=== PATIENT | female | born 1990 | race African-American/Black ===

== ENCOUNTER 2020-01-17 07:32 | Outpatient (CLI) | payer BC, SELFPAY ==
[2020-01-17 09:08] LABS: Glucose 1 Hour PP 50gm Dose 119 mg/dL
[2020-01-17 09:14] LABS: Hematocrit 30.5 % (37.0-47.0); Hemoglobin 10.4 g/dL (12.0-15.0)
[2020-01-17 09:49] LABS: HIV 1/2 Ab P24 Ag Result Negative (Negative)
== END 2020-01-17 07:33 | disposition home or self-care (01) ==
PROVIDERS: Visit Provider Obstetrics & Gynecology
DX: Z34.81 Encounter for supervision of other normal pregnancy, first trimester (principal)
CPT/HCPCS: 36415; 82947; 85014; 85018; 86703; G0432

== ENCOUNTER 2020-02-26 06:20 | Inpatient (IN) | payer BC, SELFPAY ==
[2020-02-26] VITALS (45 sets, daily range): BP systolic 107–155; BP diastolic 63–127; PULSE 71–112; RESP 16; TEMP 36.6–37; O2SAT 99–100; BMI 33.0
[2020-02-26 07:03] LABS: Basophils Percent Auto 0.1 % (0.2-1.2); Eosinophils Absolute Auto 0.1 K/mm3 (0-0.3); Eosinophils Percent Auto 1.2 % (0-4.4); Hematocrit 31.6 % (37.0-47.0); Hemoglobin 10.9 g/dL (12.0-15.0); Immature Granulocyte Percent A 0.9 % (0-0.5); Lymphocytes Absolute Auto 2.51 K/mm3 (0.9-3.2); Lymphocytes Percent Auto 23.6 % (18.3-44.2); Mean Corpuscular HGB Conc 34.5 g/dl (32-36); Mean Corpuscular Hemoglobin 27.8 pg (26-34); Mean Corpuscular Volume 80.6 fl (80-100); Mean Platelet Volume 11.7 fl (7.4-10.4); Monocytes Percent Auto 9.6 % (2.6-8.5); Neutrophils Absolute Auto 6.9 K/mm3 (1.3-6.7); Neutrophils Percent Auto 64.6 % (45.5-73.1); Platelet Count Result 185 k/mm3 (150-375); Red Blood Count 3.92 M/mm3 (4.2-5.4); Red Cell Distribution Width 13.3 % (11.5-14.5); White Blood Count 10.7 K/mm3 (4.5-10.0)
[2020-02-26] MEDS: LACTATED RINGERS 1,000 ML 125 ML IV CONT ×3 (07:12→14:07)
[2020-02-26] MEDS: OXYTOCIN 30 UNITS/NS 500 ML 30 UNITS/500 ML BAG IV CONT (07:13)
--- NOTE | 2020-02-26 07:17 | LDADM ---
This patient, Gabriele Rg, was admitted to Labor/Delivery/Recovery 107 on 02/26/20 at 06:20. Plans for labor, pain management and were discussed with patient. Patient/family oriented to hospital policies and general routines including ID bracelet, bed and alarms, visiting hours, pain management, procedures, bathroom and other care routines, personal items, smoking policy, room service/diet and guest tray routines, infant security routines, and visiting hours. Patient/Family are encouraged to report perceived risks to care and to ask questions if they do not understand what they are told or what they should do. See OBIX for further documentation.
[2020-02-26 10:37] LABS: Rapid Plasma Reagin Non-Reactive (NonReactive)
--- NOTE | 2020-02-26 10:58 | WPDANESEPPF ---
Anes - Initial Pre Proc Eval Procedure: Labor Epidural Date/Time: 02/26/20 10:58 Surgeon: Aj Bailey MD Pre Op Diagnosis: ind Patient Data Age: 29 Gender: F Height: 1.75 m Weight: 101.5 kg Last Vital Signs Pulse 80 02/26/20 10:01 BP 121/71 02/26/20 10:01 Allergies Allergy/AdvReac Type Severity Reaction Status Date / Time No Known Allergies Allergy Unverified 05/21/19 14:12 Home Medications Medication Instructions Recorded Confirmed Type PNV cmb#95-ferrous fumarate-FA 1 tablet PO DAILY 01/31/20 02/26/20 History [] ferrous sulfate 325 mg PO DAILY 01/31/20 02/26/20 History Laboratory Tests 02/26/20 02/26/20 02/26/20 06:50 06:50 06:50 WBC 10.7 K/mm3 H K/mm3 (4.5-10.0) RBC 3.92 M/mm3 L M/mm3 (4.2-5.4) Hgb 10.9 g/dL L g/dL (12.0-15.0) Hct 31.6 % L % (37.0-47.0) MCV 80.6 fl fl (80-100) MCH 27.8 pg pg (26-34) MCHC 34.5 g/dl g/dl (32-36) RDW 13.3 % % (11.5-14.5) Plt Count 185 k/mm3 k/mm3 (150-375) MPV 11.7 fl H fl (7.4-10.4) Immature Gran % (Auto) 0.9 % H % (0-0.5) Neut % (Auto) 64.6 % % (45.5-73.1) Lymph % (Auto) 23.6 % % (18.3-44.2) [place] % (Auto) 9.6 % H % (2.6-8.5) Eos % (Auto) 1.2 % % (0-4.4) Baso % (Auto) 0.1 % L % (0.2-1.2) Lymph # (Auto) 2.51 K/mm3 K/mm3 (0.9-3.2) [place] # (Auto) 1.0 K/mm3 H K/mm3 (0.1-0.6) Eos # (Auto) 0.1 K/mm3 K/mm3 (0-0.3) Baso # (Auto) 0.0 K/mm3 K/mm3 (0.0-0.1) Abs Immat Gran (auto) 0.10 K/mm3 H K/mm3 (0.00-0.031) Absolute Neuts (auto) 6.9 K/mm3 H K/mm3 (1.3-6.7) Absolute Nucleated RBC 0.0 K/mm3 K/mm3 (0.0-0.012) Nucleated RBC % 0.0 % % (0.0-0.2) RPR Non-reactive (NonReactive) Blood Type A Positive Antibody Screen Negative Patient hx anesthesia problems: none Family hx anesthesia problems: none [facility] Family History Family History Other No pertinent family history Social History Social History Smoking status: Never smoker Substance use: never Gender identity (if verbalized by the patient): Female Spiritual care concerns: No Anes - Eval Final PreProcedure Day of Procedure 02/26/20 10:58 Patient weight: obese Heart: regular rate and rhythm Lungs: clear to auscultation Airway: Mallampati scale class II Neurological: alert and oriented ASA classification: II Emergent: no Anesthetic plan: proceed Anesthesia type and monitoring: regional epidural Informed Consent: The patient's anesthetic plan and its attendant risks and benefits were discussed with the patient/family/POA. Questions were solicited and answers provided to the satisfaction of the patient/family/POA.
--- NOTE | 2020-02-26 18:15 | PM.OBPRVD ---
OB - Delivery Note Procedure Route of delivery: Laceration description: Perineal - 2nd Degree Delivery repair: chromic Specimen: No Estimated blood loss (mL): 350 Anesthesia type: Epidural Disposition: floor Narrative: Patient prepped and draped in usual manner for this procedure. Maternal expulsive efforts readily delivered vertex which was section naso-oropharynx and the rest of baby was delivered. Cord clamped cut placenta delivered spontaneously. Uterus initially was boggy but with massage and Pitocin became firm and hemostatic second-degree laceration was noted approximated in 2 0 chromic to approximate the vaginal tissue deep tissue subcuticular layer. This procedure was considered terminated immediate postop condition mother baby were both excellent. Baby Weeks of gestation at delivery: 39 Infant gender: Male Weight (pounds): 7 Weight (ounces): 8 score one minute: 8 score five minutes: 9
[2020-02-26] MEDS: OXYTOCIN 30 UNITS/NS 500 ML 30 UNITS/500 ML BAG 125 UNITS IV CONT (18:27)
[2020-02-26] MEDS: WITCH HAZEL 40 PADS 1 PAD TOPICAL (20:03)
[2020-02-26] MEDS: BENZOCAINE 20% AER SPR (*SP) 56 GM CAN 1 SPRAY TOPICAL (20:04)
[2020-02-26] MEDS: IBUPROFEN 600 MG TABLET PO (21:25)
[2020-02-27] MEDS: IBUPROFEN 600 MG TABLET PO ×2 (04:33→14:35)
[2020-02-27 04:49] LABS: Hematocrit 29.9 % (37.0-47.0)
[2020-02-27] MEDS: DOCUSATE SODIUM 100 MG CAPSULE PO (07:53)
[2020-02-27] MEDS: ACETAMINOPHEN 325 MG TABLET 650 MG PO (07:53)
[2020-02-27 09:58] VITALS: BP 113/66; PULSE 84; RESP 14; TEMP 36.4; O2SAT 100
--- NOTE | 2020-02-27 12:27 | PM.OBDSVD ---
OB - DS: Summary OB Procedures : None OB Procedures Intrapartum: Spontaneous Vag Delivery OB Procedures: : None Time Spent with Patient Time attestation: Total time spent providing and/or coordinating discharge services: DS: Data Data Completed and Pending Labs on day of discharge: Labs from last 24 hours 02/27/20 04:40 Hgb 10.0 L Hct 29.9 L Discharge Plan Discharge Discharging Clinician: Aj Bailey Patient Disposition: Home, Self-Care Activity: as tolerated Diet: as tolerated Patient Instructions: Antibiotic Form Stand Alone Forms: General Discharge Information Follow-up/Referrals: Aj Bailey MD [Physician] - 3 Weeks Discharge Medications: New ibuprofen 600 mg Tablet 600 mg PO Q6H PRN (Reason: Cramping) Qty: 30 RF: 0 Continued ferrous sulfate 325 mg (65 mg iron) Tablet 325 mg PO DAILY RF: 0 PNV cmb#95-ferrous fumarate-FA [] 28 mg iron- 800 mcg Tablet 1 tablet PO DAILY RF: 0 Date of admission: 02/26/20 06:20 Primary Care Provider: PHYSICIAN,[employer]ATION HELPER Admitting Provider: Aj Bailey Attending physician on admission: Aj Bailey
[2020-02-29 11:22] VITALS: BP 120/66; PULSE 80; RESP 20
== END 2020-02-27 19:00 | disposition home or self-care (01) | DRG 807 ==
LOC: ANHLDR 06:25 → ANHOB2 20:47
PROVIDERS: Obstetrics & Gynecology; Admitting Provider Obstetrics & Gynecology; Visit Provider Obstetrics & Gynecology
DX: O99.214 Obesity complicating childbirth (principal); Z37.0 Single live birth; Z3A.39 39 weeks gestation of pregnancy; E66.9 Obesity, unspecified; O70.1 Second degree perineal laceration during delivery
CPT/HCPCS: 36415; 85014; 85018; 85025; 86592; 86850; 86900; 86901; A9270; J2590; J2795; J7120

== ENCOUNTER 2020-10-22 09:07 | Outpatient (CLI) | payer OTHER, SELFPAY | END 2020-10-22 09:08 | disposition home or self-care (01) | PROVIDERS: Visit Provider Obstetrics & Gynecology | DX: N39.0 Urinary tract infection, site not specified (principal) | CPT/HCPCS: 87077; 87086; 87088; 87186 ==

== ENCOUNTER 2021-04-09 10:12 | Outpatient (CLI) | payer SELFPAY ==
[2021-04-09 11:51] LABS: Hematocrit 30.4 % (37.0-47.0); Hemoglobin 10.3 g/dL (12.0-15.0)
[2021-04-09 12:01] LABS: Glucose 1 Hour PP 50gm Dose 106 mg/dL
[2021-04-09 12:39] LABS: HIV 1/2 Ab P24 Ag Result Negative (Negative)
== END 2021-04-09 10:13 | disposition home or self-care (01) ==
LOC: ANHLAB 10:15
PROVIDERS: Visit Provider Obstetrics & Gynecology
DX: Z34.92 Encounter for supervision of normal pregnancy, unspecified, second trimester (principal); Z3A.00 Weeks of gestation of pregnancy not specified
CPT/HCPCS: 36415; 82947; 85014; 85018; 86703; G0432

== ENCOUNTER 2021-06-17 06:06 | Inpatient (IN) | payer OTHER, SELFPAY ==
[2021-06-17] VITALS (62 sets, daily range): BP systolic 106–157; BP diastolic 59–96; PULSE 64–123; RESP 18; TEMP 36–37.2; O2SAT 95–100; BMI 38.7
--- OUTSIDE RECORDS SUMMARY | 2021-06-17 06:12 | XMS_ITS | Encounter Summary ---
:1990 Author Reason for Visit return OB visit Assessment and Plan 1. Routine care Discussion Note: None recorded.Patient educational handouts: No information available. Plan of Care Reminders Provider Appointments None ? ? recorded. Lab None ? ? recorded. Referral None ? ? recorded. Procedures None ? ? recorded. Surgeries None ? ? recorded. Imaging None ? ? recorded. Medications No Medications Reported Notes: PNV/ Fe daily/ [place] ool softner Medications Administered None recorded. Vitals Height Weight Blood Pressure 5 ft 9 in 231 lbs 122/68 mm[Hg] Results Lab Results None recorded. Allergies Code Code System Name Reaction Severity Onset NKDA ? ? ? Problems Name Status Onset Date Source ? Active 11/04/2020 History Procedures None recorded. Vaccine List Notes: gardasil x 3 per pt le Social History None recorded. Functional Status Unknown. Past Encounters 06/02/2021 Routine Care Aj Bailey MD: [address] , [address], [place] [address], Ph. [phone]
--- OUTSIDE RECORDS SUMMARY | 2021-06-17 06:12 | XMS_ITS | Encounter Summary ---
[...] ool softner Medications Administered None recorded. Vitals Weight Blood Pressure 227 lbs 118/68 mm[Hg] Results Lab Results None recorded. Allergies Code Code System Name Reaction Severity Onset NKDA ? ? ? Problems Name Status Onset Date Source ? Active 11/04/2020 History Procedures None recorded. Vaccine List Notes: gardasil x 3 per pt le Social History None recorded. Functional Status Unknown. Past Encounters 04/21/2021 Routine Care Aj Bailey MD: [address] , [address], [place] [address], Ph.
--- OUTSIDE RECORDS SUMMARY | 2021-06-17 06:12 | XMS_ITS ---
:1990 Author Care Team Providers Name Role Phone Aj Bailey Primary Care Provider Unavailable Allergies Code Code System Name Reaction Severity Status Onset NKDA ? Medications Name Status Start Date Stop Date ? ? albuterol sulfate HFA 90 mcg/actuation aerosol inhaler Completed ? 10/28/2020 INL 2 PFS PO Q 4 H PRN Colace Completed ? 02/07/2018 doxycycline hyclate 100 mg tablet Completed ? 10/28/2020 TK 1 T PO BID Estarylla 0.25 mg-35 mcg tablet Completed ? 10/28/2020 TK 1 T PO QD hydrocodone 5 mg-acetaminophen Completed ? 0 05/23/2019 325 mg tablet ibuprofen 600 mg tablet Completed ? 03/21/20 20 TK 1 T PO Q 6 H PRF CRAMPING Lo Loestrin Fe 1 mg-10 mcg Completed ? 05/23 (24)/10 mcg (2) tablet metronidazole 0.75 % vaginal gel Completed ? 01/03/2017 I 1 APL VAGINALLY QD HS FOR 5 NTS nitrofurantoin monohydrate/macrocrystals 100 mg capsule Complete d 10/28/2020 11/17/2020 TAKE 1 CAPSULE BY MOUTH TWICE DAILY FOR 7 DAYS norethindrone (contraceptive) Completed ? 0.35 mg tablet olopatadine 0.6 % nasal spray Completed ? prednisone 20 mg tablet Completed ? 10/28/19 21 TK 3 TS PO QD FOR 5 DAYS Notes: none per pt Problems Name Status Onset Date Source ? Unknown 01/31/2017 ? Unknown 07/25/2019 ?
--- OUTSIDE RECORDS SUMMARY | 2021-06-17 06:12 | XMS_ITS ---
:1990 Author Care Team Providers Name Role Phone Aj Bailey Primary Care Provider Unavailable Allergies Code Code System Name Reaction Severity Status Onset NKDA ? Medications Name Status Start Date Stop Date ? ? albuterol sulfate HFA 90 mcg/actuation aerosol inhaler Active ? Not available INL 2 PFS PO Q 4 H PRN Colace Completed 07/11/2017 02/07/2018 doxycycline hyclate 100 mg tablet Active ? Not available TK 1 T PO BID Estarylla 0.25 mg-35 mcg tablet Active ? Not available TK 1 T PO QD hydrocodone 5 mg-acetaminophen Completed ? 0 05/23/2019 325 mg tablet ibuprofen 600 mg tablet Active ? Not avai lable TK 1 T PO Q 6 H PRF CRAMPING Lo Loestrin Fe 1 mg-10 mcg Completed ? 05/23 (24)/10 mcg (2) tablet metronidazole 0.75 % vaginal gel Completed ? 01/03/2017 I 1 APL VAGINALLY QD HS FOR 5 NTS nitrofurantoin monohydrate/macrocrystals 100 mg capsule Active ? Not available TAKE 1 CAPSULE BY MOUTH TWICE DAILY FOR 7 DAYS norethindrone (contraceptive) Completed ? 0.35 mg tablet olopatadine 0.6 % nasal spray Completed ? prednisone 20 mg tablet Active ? Not avai lable TK 3 TS PO QD FOR 5 DAYS Notes: PNV/ Fe daily/ [place] [facility] ool softner Problems Name Status Onset Date Source ? Unknown 01/31/2017 History Unknown
--- OUTSIDE RECORDS SUMMARY | 2021-06-17 06:12 | XMS_ITS | Encounter Summary ---
[...] Weight Blood Pressure 5 ft 9 in 232 lbs 116/66 mm[Hg] Results Lab Results None recorded. Allergies Code Code System Name Reaction Severity Onset NKDA ? ? ? Problems Name Status Onset Date Source ? Active 11/04/2020 History Procedures None recorded. Vaccine List Notes: gardasil x 3 per pt le Social History None recorded. Functional Status Unknown. Past Encounters 05/05/2021 Routine Care Aj Bailey MD: [address] , [address], [place] [address], Ph. [phone]
--- OUTSIDE RECORDS SUMMARY | 2021-06-17 06:12 | XMS_ITS | Encounter Summary ---
[...] Weight Blood Pressure 5 ft 9 in 226 lbs 110/62 mm[Hg] Results Lab Results None recorded. Allergies Code Code System Name Reaction Severity Onset NKDA ? ? ? Problems Name Status Onset Date Source ? Active 11/04/2020 History Procedures None recorded. Vaccine List Notes: gardasil x 3 per pt le Social History None recorded. Functional Status Unknown. Past Encounters 04/07/2021 Routine Care Aj Bailey MD: [address] , [address], [place] [address], Ph. [phone])
--- OUTSIDE RECORDS SUMMARY | 2021-06-17 06:12 | XMS_ITS | Encounter Summary ---
:1990 Author Reason for Visit OB Ultrasound Assessment and Plan None recorded.Discussion Note: None recorded.Patient educational handouts: No information available. Plan of Care Reminders Provider Appointments None ? ? recorded. Lab None ? ? recorded. Referral None ? ? recorded. Procedures None ? ? recorded. Surgeries None ? ? recorded. Imaging None ? ? recorded. Medications No Medications Reported Notes: PNV/ Fe daily/ [place] ool softner Medications Administered None recorded. Vitals None recorded. Results Lab Results None recorded. Allergies Code Code System Name Reaction Severity Onset NKDA ? ? ? Problems Name Status Onset Date Source ? Active 11/04/2020 History Procedures None recorded. Vaccine List Notes: gardasil x 3 per pt le Social History None recorded. Functional Status Unknown. Past Encounters 05/25/2021 Aj Bailey MD: [address] , [address], [place] [address], Ph. 05/19/2021 Routine Care Aj Bailey MD: [address] , [address], [place] [address], Ph.
--- OUTSIDE RECORDS SUMMARY | 2021-06-17 06:12 | XMS_ITS | Encounter Summary ---
[...] Weight Blood Pressure 5 ft 9 in 238 lbs 126/66 mm[Hg] Results Lab Results None recorded. Allergies Code Code System Name Reaction Severity Onset NKDA ? ? ? Problems Name Status Onset Date Source ? Active 11/04/2020 History Procedures None recorded. Vaccine List Notes: gardasil x 3 per pt le Social History None recorded. Functional Status Unknown. Past Encounters 06/09/2021 Routine Care Aj Bailey MD: [address] , [address], [place] [address], Ph. [phone]
--- OUTSIDE RECORDS SUMMARY | 2021-06-17 06:12 | XMS_ITS | Encounter Summary ---
:1990 Author Reason for Visit return OB visit Assessment and Plan 1. Routine care ? streptococcus group B, cul ture, unspecified specimen Discussion Note: None recorded.Patient educational handouts: No information available. Plan of Care Reminders Provider Appointments None recorded. ? ? Lab Streptococcus [facility] Group B, Culture, 05/19/2021 Unspecified Specimen Referral None recorded. ? ? Procedures None recorded. ? ? Surgeries None recorded. ? ? Imaging None recorded. ? ? Medications No Medications Reported Notes: PNV/ Fe daily/ [place] [facility] ool softner Medications Administered None recorded. Vitals Height Weight Blood Pressure 5 ft 9 in 236 lbs 120/78 mm[Hg] Results Lab Results Date Name Specimen Result Interpretation Description Value Range Status Address ? 05/19/2021 Streptococcus ? Strep Gp negative negative Final [facility]: Group B, B [id number] Culture, L[place] R [place], Unspecified [place] Specimen Allergies Code Code System Name Reaction Severity Onset
[2021-06-17] MEDS: LACTATED RINGERS 1,000 ML 125 ML IV CONT ×2 (07:03→10:05)
[2021-06-17] MEDS: OXYTOCIN 30 UNITS/NS 500 ML 30 UNITS/500 ML BAG IV CONT (07:03)
[2021-06-17 07:05] LABS: Basophils Percent Auto 0.2 % (0.2-1.2); Eosinophils Absolute Auto 0.1 K/mm3 (0-0.3); Eosinophils Percent Auto 0.8 % (0-4.4); Hemoglobin 10.3 g/dL (12.0-15.0); Immature Granulocyte Absolute 0.04 K/mm3 (0.00-0.031); Immature Granulocyte Percent A 0.4 % (0-0.5); Lymphocytes Absolute Auto 2.44 K/mm3 (0.9-3.2); Lymphocytes Percent Auto 24.6 % (18.3-44.2); Mean Corpuscular HGB Conc 34.3 g/dl (32-36); Mean Corpuscular Hemoglobin 27.2 pg (26-34); Mean Corpuscular Volume 79.2 fl (80-100); Monocytes Absolute Auto 1.1 K/mm3 (0.1-0.6); Monocytes Percent Auto 10.7 % (2.6-8.5); Neutrophils Absolute Auto 6.3 K/mm3 (1.3-6.7); Neutrophils Percent Auto 63.3 % (45.5-73.1); Platelet Count Result 215 k/mm3 (150-375); Red Blood Count 3.79 M/mm3 (4.2-5.4); Red Cell Distribution Width 13.8 % (11.5-14.5); White Blood Count 9.9 K/mm3 (4.5-10.0)
--- NOTE | 2021-06-17 07:09 | LDADM ---
This patient, Gabriele Rg, was admitted to Labor/Delivery/Recovery 105 on 06/17/21 at 06:06. Plans for labor, pain management and were discussed with patient. Patient/family oriented to hospital policies and general routines including ID bracelet, bed and alarms, visiting hours, pain management, procedures, bathroom and other care routines, personal items, smoking policy, room service/diet and guest tray routines, infant security routines, and visiting hours. Patient/Family are encouraged to report perceived risks to care and to ask questions if they do not understand what they are told or what they should do. See OBIX for further documentation.
--- NOTE | 2021-06-17 08:23 | WPDANESEPP ---
Anes - Eval Pre Procedure Date/Time: 06/17/21 08:23 Pre Op Diagnosis: iol Patient Data Age: 30 Gender: F Height: 1.75 m Weight: 119 kg Last Vital Signs Pulse 70 06/17/21 08:16 BP 156/84 H 06/17/21 08:16 Allergies Allergy/AdvReac Type Severity Reaction Status Date / Time No Known Allergies Allergy Unverified 10/23/20 13:17 Home Medications Medication Instructions Recorded Confirmed Type PNV cmb#95-ferrous fumarate-FA 1 tablet PO DAILY 01/31/20 02/26/20 History [] ferrous sulfate 325 mg PO DAILY 01/31/20 02/26/20 History sennosides [Senokot] 8.6 mg PO HS 05/27/21 05/27/21 History Laboratory Tests 06/17/21 06/17/21 06:50 06:50 WBC 9.9 K/mm3 K/mm3 (4.5-10.0) RBC 3.79 M/mm3 L M/mm3 (4.2-5.4) Hgb 10.3 g/dL L g/dL (12.0-15.0) Hct 30.0 % L % (37.0-47.0) MCV 79.2 fl L fl (80-100) MCH 27.2 pg pg (26-34) MCHC 34.3 g/dl g/dl (32-36) RDW 13.8 % % (11.5-14.5) Plt Count 215 k/mm3 k/mm3 (150-375) MPV 12.0 fl H fl (7.4-10.4) Immature Gran % (Auto) 0.4 % % (0-0.5) Neut % (Auto) 63.3 % % (45.5-73.1) Lymph % (Auto) 24.6 % % (18.3-44.2) [place] % (Auto) 10.7 % H % (2.6-8.5) Eos % (Auto) 0.8 % % (0-4.4) Baso % (Auto) 0.2 % % (0.2-1.2) Lymph # (Auto) 2.44 K/mm3 K/mm3 (0.9-3.2) [place] # (Auto) 1.1 K/mm3 H K/mm3 (0.1-0.6) Eos # (Auto) 0.1 K/mm3 K/mm3 (0-0.3) Baso # (Auto) 0.0 K/mm3 K/mm3 (0.0-0.1) Abs Immat Gran (auto) 0.04 K/mm3 H K/mm3 (0.00-0.031) Absolute Neuts (auto) 6.3 K/mm3 K/mm3 (1.3-6.7) Absolute Nucleated RBC 0.0 K/mm3 K/mm3 (0.0-0.012) Nucleated RBC % 0.0 % % (0.0-0.2) RPR Pending Patient hx anesthesia problems: none Family hx anesthesia problems: none PMFSH Family History Family History Other Family history of malignant neoplasm of breast Grandparent Heart valve calcification Other No pertinent family history Social History Social History Smoking status: Never smoker Alcohol intake: current Substance use: never Gender identity (if verbalized by the patient): Female Spiritual care concerns: No Exam Day of Procedure 06/17/21 08:23 Patient weight: obese Heart: regular rate and rhythm Lungs: normal air movement Airway: Mallampati scale class II Neurological: alert and oriented
[2021-06-17 11:24] LABS: Rapid Plasma Reagin Non-Reactive (NonReactive)
--- NOTE | 2021-06-17 13:25 | WPDHPUPDATE1 ---
History and Physical Update Update Date/Time: 06/17/21 13:25 History and Physical has been reviewed, including an updated exam of the patient. There are NO changes in the patient's condition. Risks, benefits, and alternatives have been discussed and questions answered. Patient agrees to proceed with procedure.
--- NOTE | 2021-06-17 13:25 | WPDOBADMIT ---
Obstetrics - Admit Note Admission Note: record reviewed. No pertinent additions to the history and/or any subsequent changes in the physical findings that are not consistent with the expected course of the were found. Additions to the history and/or subsequent changes in the physical findings follow. None.
--- NOTE | 2021-06-17 13:25 | PM.OBPRVD ---
OB - Delivery Note Procedure Route of delivery: Episiotomy description: None Laceration Description: None Delivery repair: chromic Specimen: No Quantitative Blood Loss (ml): 250 Anesthesia type: Epidural Disposition: floor Narrative: Patient prepped and draped in usual manner for this procedure. Maternal expulsive efforts readily delivered vertex of the rest baby was delivered as well. Cord was clamped and cut and placenta delivered spontaneously. Uterus was well contracted. Cervix vagina vulva were evaluate no lacerations or tears. At this point the procedure was considered terminated with immediate postoperative condition of mother and baby both excellent. Baby Weeks of gestation at delivery: 39 Infant gender: Female Weight (pounds): 8 Weight (ounces): 12 score one minute: 8 score five minutes: 9
[2021-06-17] MEDS: OXYTOCIN 30 UNITS/NS 500 ML 30 UNITS/500 ML BAG 125 UNITS IV CONT (13:41)
[2021-06-17] MEDS: WITCH HAZEL 40 PADS 1 PAD TOPICAL (15:31)
[2021-06-17] MEDS: BENZOCAINE 20% AER SPR (*SP) 56 GM CAN 1 SPRAY TOPICAL (15:31)
--- NOTE | 2021-06-17 18:28 | PC.NURSE ---
1550 Pt admitted to room 288 per wheelchair from labor and delivery after vaginal delivery of viable female at [address]. Mother is a and is choosing to breast feed . /FOB present. Couple oriented to room, staffing and procedures; admission folder reviewed, including Mother-Baby Guide. Pt's VSS and assessment WNL.
[2021-06-17] MEDS: IBUPROFEN 600 MG TABLET PO (19:22)
[2021-06-17] MEDS: TETANUS,DIPHTHERIA,AC PERTUSSIS ADULT (0.5 ML) BOOSTRIX IM (19:23)
[2021-06-18 04:00] VITALS: BP 107/63; PULSE 67; RESP 18; TEMP 36.3; O2SAT 96
[2021-06-18] MEDS: IBUPROFEN 600 MG TABLET PO ×2 (04:11→12:51)
[2021-06-18 04:44] LABS: Hematocrit 28.3 % (37.0-47.0); Hemoglobin 9.7 g/dL (12.0-15.0)
[2021-06-18 08:35] VITALS: BP 111/73; PULSE 67; RESP 16; TEMP 36.8; O2SAT 100
[2021-06-18] MEDS: MULTIVIT/MIN/PREN/FOL AC/IRON TABLET 1 TAB PO (08:35)
[2021-06-18] MEDS: POLYSACCHARIDE IRON COMPLEX 150 MG CAPSULE PO (08:35)
[2021-06-18] MEDS: DOCUSATE SODIUM 100 MG CAPSULE PO (08:35)
--- NOTE | 2021-06-18 08:39 | WPDANLDPN2 ---
Anes-Prog Note L&D Date/Time: 06/18/21 08:39 Comfortable throughout: labor and delivery Neuraxial method: epidural Epidural/Spinal procedure site: clean & non-tender Neuro status: Neuro function grossly intact. Cardiovascular status: normal Respiratory status: normal Airway patency: baseline Mental status: baseline Post-Op hydration status: normal Vital Signs: Last Vital Signs Temp 97.4 F L 06/18/21 04:00 Pulse 67 06/18/21 04:00 Resp 18 06/18/21 04:00 BP 107/63 06/18/21 04:00 Pulse Ox 96 06/18/21 04:00 Pain score (VAS): 10/05 Post-procedural complaints: none Patient feedback: Patient satisfied with anesthetic care.
--- NOTE | 2021-06-18 09:20 | PC.NURSE ---
Consult with pt., mother reports is eagerly feeding without issue. This is mother?s 3rd child to breastfeed. Requested mother call out next feeding for observation per policy. Reviewed infant feeding cues, frequencies, duration of feedings, feeding elimination flow sheet, and signs of adequate intake. Demonstrated stimulation techniques to wake for feeding. Reviewed signs of a correct latch, effective nursing and suck swallow ratio. Nipple care reviewed of lanolin after feedings and warm compresses as needed. Instructed feeding should be initiated three hours from start of last feeding or if feeding cues are noted before. Mother voiced understanding of information shared.
[2021-06-18 12:05] VITALS: BP 128/84; PULSE 68; RESP 16; TEMP 37; O2SAT 98
--- NOTE | 2021-06-18 12:36 | PM.OBDSVD ---
DS: Admitting Diagnosis Discharge Date 06/18/2021 Admitting Diagnosis OB - DS: Summary OB Procedures : None OB Procedures Intrapartum: Spontaneous Vag Delivery OB Procedures: : None Time Spent with Patient Time attestation: Total time spent providing and/or coordinating discharge services: DS: Data Data Completed and Pending Labs on day of discharge: Labs from last 24 hours 06/18/21 04:22 Hgb 9.7 L Hct 28.3 L Discharge Plan Discharge Discharging Clinician: Aj Bailey Patient Disposition: Home, Self-Care Activity: as tolerated Diet: as tolerated Patient Instructions: Antibiotic Form Stand Alone Forms: General Discharge Information Follow-up/Referrals: Aj Bailey MD [Physician] - 3 Weeks Discharge Medications: New ibuprofen 600 mg Tablet 600 mg PO Q6H PRN (Reason: Cramping) Qty: 30 RF: 0 Continued ferrous sulfate 325 mg (65 mg iron) Tablet 325 mg PO DAILY RF: 0 PNV cmb#95-ferrous fumarate-FA [] 28 mg iron- 800 mcg Tablet 1 tablet PO DAILY RF: 0 sennosides [Senokot] 8.6 mg Tablet 8.6 mg PO HS RF: 0 Date of admission: 06/17/21 06:06 Primary Care Provider: PHYSICIAN,[employer]IE [employer]UNT PERFORMER Admitting Provider: Aj Bailey Attending physician on admission: Aj Bailey Condition: Stable
--- NOTE | 2021-06-18 14:30 | PC.NURSE ---
Patient received instruction on viewing the discharge video Mother & Baby Care, The First Two Weeks . Patient was given the opportunity and encouraged to ask questions. Patient verbalized understanding of information shared and has been given the mother/baby guide for home reference.
[2021-06-20 10:26] VITALS: BP 130/80; PULSE 79; RESP 16; TEMP 36.9; O2SAT 100
== END 2021-06-18 15:22 | disposition home or self-care (01) | DRG 807 ==
LOC: ANHLDR 06:10 → ANHOB2 16:02
PROVIDERS: Admitting Provider Obstetrics & Gynecology; Visit Provider Obstetrics & Gynecology
DX: O69.81X0 Labor and delivery complicated by cord around neck, without compression, not applicable or unspecified (principal); Z37.0 Single live birth; Z3A.39 39 weeks gestation of pregnancy; O99.214 Obesity complicating childbirth; E66.9 Obesity, unspecified
CPT/HCPCS: 36415; 85014; 85018; 85025; 86592; 86850; 86900; 86901; 90715; A9270; J2590; J2795; J7120